=== PATIENT | female | born 1990 | race Caucasian/White ===

== ENCOUNTER 2017-08-15 10:50 | Emergency (ER) | payer SELFPAY | END 2017-08-15 13:57 | disposition left against medical advice (07) | LOC: FTE 10:50 | DX: Z53.21 Procedure and treatment not carried out due to patient leaving prior to being seen by health care provider (principal) ==

== ENCOUNTER 2018-03-05 05:40 | Inpatient (IN) | payer MEDICAID ==
[2018-03-05] MEDS: LACTATED RINGER'S 1,000 ML IV ×4 (05:54→23:38)
[2018-03-05] MEDS ORDERED: METHYLERGONOVINE 0.2 MG INJ IM ×2 (06:00→09:00)
[2018-03-05] MEDS ORDERED: MISOPROSTOL 200 MCG TAB PR ×2 (06:00→09:00)
[2018-03-05] MEDS ORDERED: CARBOPROST 250 MCG INJ IM ×2 (06:00→09:00)
[2018-03-05] MEDS ORDERED: OXYTOCIN 30 UNITS/LR 500 ML IV ×4 (06:00→09:00)
[2018-03-05] MEDS ORDERED: CEFAZOLIN 2 GM/50 ML (PMX) 50 ML IVPB (06:00)
[2018-03-05 06:37] LABS: ADD MAN DIFF? NO
[2018-03-05 06:40] LABS: WHITE BLOOD COUNT 14.9 10^3/ul (4.8-10.8)
[2018-03-05 06:40] LABS: BASOPHIL # 0.1 10^3/ul (0.0-0.1); BASOPHILS % 0.6 % (0.0-2.0); EOSINOPHILS # 0.1 10^3/ul (0.0-0.5); EOSINOPHILS % 0.9 % (0.0-7.0); HEMATOCRIT 40.5 % (37.0-47.0); LYMPHOCYTES # 2.7 10^3/ul (0.8-2.9); LYMPHOCYTES % 18.4 % (15.0-51.0); MEAN CORPUSCULAR HEMOGLOBIN 26.7 pg (29.0-33.0); MEAN CORPUSCULAR HGB CONC 32.1 g/dl (32.0-37.0); MEAN CORPUSCULAR VOLUME 83.2 fl (82.0-101.0); MEAN PLATELET VOLUME 10.3 fl (7.4-10.4); MONOCYTE # 1.1 10^3/ul (0.3-0.9); MONOCYTES % 7.5 % (0.0-11.0); NEUTROPHIL # 10.5 10^3/ul (1.6-7.5); NEUTROPHILS % 70.2 % (39.0-77.0); PLATELET COUNT 435 10^3/UL (140-415); RED BLOOD COUNT 4.87 10^6/ul (4.20-5.40); RED CELL DISTRIBUTION WIDTH 15.9 % (11.5-14.5)
[2018-03-05 06:58] LABS: INR 0.89; PROTIME 12.1 Sec (11.9-14.9); PT RATIO 0.9
[2018-03-05 06:59] LABS: PARTIAL THROMBOPLASTIN TIME 29.1 Sec (23.0-35.0)
[2018-03-05 07:31] LABS: HEPATITIS B SURFACE ANTIGEN NEGATIVE (NEGATIVE)
[2018-03-05] MEDS: CITRIC ACID/NA CITRATE 30 ML CUP PO (07:35)
[2018-03-05] MEDS: METOCLOPRAMIDE 10 MG INJ IV (07:36)
[2018-03-05] MEDS: FAMOTIDINE 20 MG INJ IV (07:36)
[2018-03-05] MEDS ORDERED: morphine SULFATE/PF (10 MG/10 ML) INJ (07:47)
[2018-03-05] MEDS ORDERED: FAMOTIDINE 20 MG INJ IV (08:00)
[2018-03-05] MEDS ORDERED: PHENYLephrine (100 MCG/ML) 10ML SYG (08:00)
[2018-03-05] MEDS ORDERED: METOCLOPRAMIDE 10 MG INJ IV (08:00)
[2018-03-05] MEDS ORDERED: CITRIC ACID/NA CITRATE 30 ML CUP PO (08:00)
[2018-03-05] MEDS ORDERED: ONDANSETRON 4 MG INJ (08:25)
[2018-03-05] MEDS ORDERED: MEPERIDINE 25 MG INJ IV (08:30)
[2018-03-05] MEDS ORDERED: PROCHLORPERAZINE 10 MG INJ IV (08:30)
[2018-03-05] MEDS ORDERED: HYDROmorphONE 1 MG/5 ML IV SYRINGE IV ×3 (08:30)
[2018-03-05] MEDS ORDERED: DIPHENHYDRAMINE 50 MG INJ IV ×2 (08:30→09:00)
[2018-03-05] MEDS ORDERED: KETOROLAC 30 MG INJ IV (08:30)
[2018-03-05] MEDS ORDERED: FENTAnyl 50 MCG/ML VIAL IV ×3 (08:30)
[2018-03-05] MEDS ORDERED: ONDANSETRON 4 MG INJ IV ×2 (08:30→09:00)
[2018-03-05] MEDS ORDERED: ZOLPIDEM 5 MG TAB PO (09:00)
[2018-03-05] MEDS ORDERED: NACL 0.9% 3 ML SYG IV (09:00)
[2018-03-05] MEDS ORDERED: HYDROmorphONE 0.5 MG/0.5 ML SYG IV ×2 (09:00)
[2018-03-05] MEDS: OXYTOCIN 30 UNITS/LR 500 ML IV ×2 (09:00→14:42)
[2018-03-05] MEDS ORDERED: NALOXONE (0.4 MG/ML) INJ IV (09:00)
[2018-03-05] MEDS: CEFAZOLIN 2 GM/50 ML (PMX) 50 ML IVPB ×3 (09:32→22:25)
[2018-03-05] MEDS: KETOROLAC 30 MG INJ IV ×3 (10:50→23:38)
[2018-03-05] MEDS: IBUPROFEN 600 MG TAB PO ×2 (12:30→17:36)
[2018-03-05] MEDS: LANOLIN HPA 1 PKT TOP (14:38)
[2018-03-05 21:59] LABS: RAPID PLASMA REAGIN NONREACTIVE (NR)
[2018-03-06] MEDS: LACTATED RINGER'S 1,000 ML IV ×3 (03:30→21:34)
[2018-03-06] MEDS: CEFAZOLIN 2 GM/50 ML (PMX) 50 ML IVPB (05:54)
[2018-03-06] MEDS: KETOROLAC 30 MG INJ IV (05:56)
[2018-03-06] MEDS: IBUPROFEN 600 MG TAB PO ×4 (06:00→18:14)
[2018-03-06 07:30] LABS: ADD MAN DIFF? NO
[2018-03-06 07:31] LABS: BASOPHIL # 0.1 10^3/ul (0.0-0.1); BASOPHILS % 0.7 % (0.0-2.0); EOSINOPHILS # 0.2 10^3/ul (0.0-0.5); EOSINOPHILS % 0.8 % (0.0-7.0); HEMATOCRIT 39.8 % (37.0-47.0); HEMOGLOBIN 12.4 g/dl (12.0-16.0); LYMPHOCYTES # 2.1 10^3/ul (0.8-2.9); LYMPHOCYTES % 11.5 % (15.0-51.0); MEAN CORPUSCULAR HEMOGLOBIN 26.7 pg (29.0-33.0); MEAN CORPUSCULAR HGB CONC 31.2 g/dl (32.0-37.0); MEAN CORPUSCULAR VOLUME 85.8 fl (82.0-101.0); MEAN PLATELET VOLUME 10.1 fl (7.4-10.4); MONOCYTE # 1.2 10^3/ul (0.3-0.9); MONOCYTES % 6.8 % (0.0-11.0); NEUTROPHIL # 14.3 10^3/ul (1.6-7.5); NEUTROPHILS % 78.8 % (39.0-77.0); PLATELET COUNT 410 10^3/UL (140-415); RED BLOOD COUNT 4.64 10^6/ul (4.20-5.40)
[2018-03-06 07:31] LABS: WHITE BLOOD COUNT 18.1 10^3/ul (4.8-10.8)
[2018-03-06] MEDS: OXYCODONE/ACETAMINOPHEN (5/325) TAB PO ×2 (16:27→20:21)
[2018-03-07] MEDS: IBUPROFEN 600 MG TAB PO ×5 (00:30→23:36)
[2018-03-07] MEDS: OXYCODONE/ACETAMINOPHEN (5/325) TAB PO ×5 (00:31→21:36)
[2018-03-07 07:57] LABS: WHITE BLOOD COUNT 14.8 10^3/ul (4.8-10.8)
[2018-03-08] MEDS: OXYCODONE/ACETAMINOPHEN (5/325) TAB PO (02:04)
[2018-03-08] MEDS: IBUPROFEN 600 MG TAB PO ×2 (05:30→12:36)
[2018-03-08] MEDS: BISACODYL 10 MG SUPP PR (13:48)
== END 2018-03-08 15:50 | disposition home or self-care (01) | DRG 785 ==
LOC: L-D 05:40 → PP1 11:29
PROVIDERS: Obstetrics & Gynecology
PROC: 10D00Z1 Extraction of Products of Conception, Low, Open Approach (ICD-10-PCS; principal; 2018-03-05 07:30)
PROC: 0UB70ZZ Excision of Bilateral Fallopian Tubes, Open Approach (ICD-10-PCS; 2018-03-05 07:30)
DX: O34.211 Maternal care for low transverse scar from previous cesarean delivery (principal); Z3A.39 39 weeks gestation of pregnancy; Z37.0 Single live birth; Z30.2 Encounter for sterilization
CPT/HCPCS: 85025; 85048; 85610; 85730; 86592; 86850; 86900; 86901; 87340; 88302; 99464